=== PATIENT | male | born 1980 | race Caucasian/White ===

== ENCOUNTER 2019-11-05 22:35 | Emergency (ER) | payer OTHER, SELFPAY ==
[2019-11-05 22:45] VITALS: BP 111/78; PULSE 62; RESP 14; TEMP 36.6; O2SAT 98; BMI 27.9
[2019-11-05 23:54] VITALS: BP 127/79; PULSE 51; RESP 18; O2SAT 98
--- NOTE | 2019-11-06 02:09 | ED.EAR ---
HPI - Ear Problem General Chief complaint: Ear Stated complaint: Qtip stuck in left ear Time Seen by Provider: 11/05/19 23:32 Source: patient Mode of arrival: Ambulatory Limitations: no limitations History of Present Illness HPI Narrative: Otherwise healthy 39-year-old gentleman who was using a Q-tip to clean out his left ear prior to bed and the cotton and of the swab was left in the ear canal. Review of Systems Review of Systems Narrative: No ear pain cough, fever, hearing loss, ear drainage. Patient History Medical History (Updated 11/06/19 @ 02:10 by Ghada Reyna MD) Healthy adult (Acute) Social History Smoking Status: Never smoker Smoking Status: Never smoker alcohol intake frequency: 0-2 drinks per day Substance Use Type: does not use Exam Narrative Exam Narrative: General: Alert appropriate in no acute distress Respiratory: Able to speak in full sentences, no obvious respiratory distress Skin: No obvious rashes, warm and dry Neurologic: Grossly intact no obvious asymmetries or abnormalities Psych, appropriate insight and affect, cooperative ENT: Left ear is examined, cotton swab does appear to be retained. Using alligator forceps it is easily removed with no injury or damage to the ear canal or tympanic membrane. Initial Vital Signs Initial Vital Signs: Vital Signs Temperature 97.8 F 11/05/19 22:45 Pulse Rate 62 11/05/19 22:45 Respiratory Rate 14 11/05/19 22:45 Blood Pressure 111/78 11/05/19 22:45 Pulse Oximetry 98 11/05/19 22:45 Course Vital Signs Vital signs: Vital Signs - 8 hr 11/05/19 22:45 11/05/19 23:54 Temperature 97.8 F Pulse Rate 62 51 L Respiratory Rate 14 18 Blood Pressure 111/78 127/79 Pulse Oximetry 98 98 Medical Decision Making MDM Narrative Medical decision making narrative: Cotton swab in left ear canal from tip of a Q-tip easily removed with alligator forceps. Discharge Plan Departure Patient Disposition: Home Clinical Impression: Foreign body in ear Qualifiers: Encounter type: initial encounter Laterality: left Qualified Code(s): T16.2XXA - Foreign body in left ear, initial encounter Discharge Date/Time: 11/05/19 23:55 Instructions: DI for Removal of Foreign Body From Ear Activity Restrictions/Additional Instructions: Thank you for coming in The Q-tip tip was, in fact, stuck in your ear and fairly easy to remove. There is no trauma to the ear canal. I wish you the best
== END 2019-11-05 23:55 | disposition home or self-care (01) ==
PROVIDERS: Emergency Provider Emergency Medicine
DX: T16.2XXA Foreign body in left ear, initial encounter (principal)
CPT/HCPCS: 99281

== ENCOUNTER → 2022-10-03 12:39 | Outpatient (CLI) | payer OTHER, SELFPAY ==
--- NOTE | 2022-10-03 | DI.MRI.S_ITS ---
PROCEDURE: MR ELBOW RT WO CON INDICATIONS: Unspecified disorder of synovium right arm TECHNIQUE: Noncontrast coronal proton density fast spin echo and T2 fast spin echo with fat saturation, axial and sagittal T1 spin echo and T2 fast spin echo with fat saturation through the elbow. COMPARISON: None. FINDINGS: Image quality: Excellent. Lateral structures: The lateral ulnar collateral ligament and radial collateral ligament both appear intact. The overlying common extensor tendon also appears normal. Medial structures: The ulnar collateral ligament appears intact. The overlying common flexor tendon appears normal. The ulnar nerve appears normal in size and signal within the cubital tunnel. Anterior structures: The biceps and brachialis tendons both appear intact as they insert onto the proximal radius and ulna, respectively. Mild T2 signal elevation adjacent to the radial insertion of the biceps tendon.. The median and radial neurovascular bundles appear normal; no focal muscle atrophy to suggest nerve impingement. Posterior structures: The conjoint triceps tendon from the long and lateral heads appears intact. The medial head of the triceps tendon also appears normal, with direct muscle insertion onto the olecranon. No olecranon bursal fluid. Bone and cartilage: No bone marrow contusions or fractures. No osteochondral injuries. IMPRESSION: 1. Insertional tendinitis of the biceps tendon. Dictated by: Trini Johnston M.D. on 10/03/2022 at 14:19 Transcribed by: MICHAEL on 10/03/2022 at 14:21 Approved by: Trini Johnston M.D. on 10/03/2022 at 16:45
== END ==
PROVIDERS: PCP Family Medicine; Referring Provider Family Medicine; Visit Provider Family Medicine
DX: M67.921 Unspecified disorder of synovium and tendon, right upper arm (principal); M77.8 Other enthesopathies, not elsewhere classified
CPT/HCPCS: 73221

== ENCOUNTER → 2024-11-23 07:47 | Outpatient (CLI) | payer OTHER, SELFPAY ==
--- NOTE | 2024-11-23 07:48 | DI.RAD.S_ITS ---
PROCEDURE: XR CERVICAL SPINE 4V OR 5V INDICATIONS: NECK PAIN TECHNIQUE: 5 views of the cervical spine acquired. COMPARISON: None. FINDINGS: Bones: No fractures or dislocations to the T1 level. Oblique images demonstrate right-sided bony foraminal stenosis at C3-4 level. Soft tissues: No prevertebral soft tissue swelling. IMPRESSION: No cervical spine fracture or dislocation. No significant degenerative disc disease. Mild right-sided bony foraminal narrowing seen at C3-4 level. Dictated by: Jose Herrera M.D. on 11/23/2024 at 8:30 Approved by: Jose Herrera M.D. on 11/23/2024 at 8:31
== END ==
PROVIDERS: PCP Family Medicine; Referring Provider Physical Medicine & Rehabilitation; Visit Provider Physical Medicine & Rehabilitation
DX: M48.02 Spinal stenosis, cervical region (principal); M54.2 Cervicalgia
CPT/HCPCS: 72050

== ENCOUNTER → 2024-11-29 07:33 | Outpatient (CLI) | payer OTHER, SELFPAY ==
--- NOTE | 2024-11-29 07:34 | DI.MRI.S_ITS ---
PROCEDURE: MR CERVICAL SPINE WO CON INDICATIONS: Cervical radiculopathy TECHNIQUE: Noncontrast sagittal T1 spin echo and T2 fast spin echo, sagittal STIR, foraminal oblique sagittal T2 fast spin echo, and axial gradient echo or T2 fast spin echo through the cervical spine. COMPARISON: None. FINDINGS: Image quality: Excellent. Alignment and Curvature: There is normal bony alignment. Bone Marrow: Marrow demonstrates normal overall signal. Spinal Cord: Visualized spinal cord has normal size and signal. No cerebellar tonsillar herniation. Paraspinous Soft Tissues: No paravertebral masses. Prevertebral soft tissues are normal in thickness. C2-C3: No disc bulge, spinal stenosis or foraminal narrowing. C3-C4: Minimal bilateral foraminal narrowing. No disc bulge or spinal stenosis. C4-C5: No disc bulge, spinal stenosis or foraminal narrowing. C5-C6: No disc bulge, spinal stenosis or foraminal narrowing. C6-C7: No disc bulge, spinal stenosis or foraminal narrowing. C7-T1: No disc bulge, spinal stenosis or foraminal narrowing. IMPRESSION: Minimal bilateral foraminal narrowing C3-4. Dictated by: Fanta Mooney M.D. on 11/29/2024 at 13:36 Approved by: Fanta Mooney M.D. on 11/29/2024 at 13:40
== END ==
LOC: MRI 07:34
PROVIDERS: PCP Family Medicine; Referring Provider Physical Medicine & Rehabilitation; Visit Provider Physical Medicine & Rehabilitation
DX: M54.12 Radiculopathy, cervical region (principal); R20.2 Paresthesia of skin
CPT/HCPCS: 72141

== ENCOUNTER → 2025-02-16 08:42 | Outpatient (CLI) | payer OTHER, SELFPAY | PROVIDERS: Family Provider Physical Medicine & Rehabilitation; PCP Family Medicine; Referring Provider Physical Medicine & Rehabilitation; Visit Provider Physical Medicine & Rehabilitation | DX: M54.12 Radiculopathy, cervical region (principal); R20.2 Paresthesia of skin | CPT/HCPCS: 95886; 95913 ==